=== PATIENT | male | born 1955 | race Caucasian/White ===

== ENCOUNTER 2017-09-26 10:18 | Inpatient (IN) | payer BC, OTHER ==
[~2017-09-26] VITALS: Ht 180.3 cm; Wt 101.6 kg
[~2017-09-26 10:18] MED LIST: LOSARTIN; POTASSIUM; amlodipine
[2017-09-26 11:24] LABS: BASOPHILS # (AUTO) 0.02 x10^3/uL (0-0.1); BASOPHILS % (AUTO) 0 % (0-1); EOSINOPHILS # (AUTO) 0.18 x10^3/uL (0-0.4); EOSINOPHILS % (AUTO) 3 % (1-7); LYMPHOCYTES # (AUTO) 1.01 x10^3/uL (1-3.4); LYMPHOCYTES % (AUTO) 15 % (22-44); MD NO; MEAN CORPUSCULAR HEMOGLOBIN 31.6 pg (27.5-34.5); MEAN CORPUSCULAR HGB CONC 34.4 g/dL (33.2-36.2); MEAN CORPUSCULAR VOLUME 92.1 fL (81-97); MEAN PLATELET VOLUME 7.4 fL (7.4-10.4); MONOCYTES # (AUTO) 0.29 x10^3/uL (0.2-0.8); MONOCYTES % (AUTO) 4 % (2-9); NEUTROPHILS # (AUTO) 5.32 x10^3/uL (1.8-6.8); NEUTROPHILS % (AUTO) 78 % (42-75); PLATELET COUNT 172 x10^3/uL (130-400); RED BLOOD COUNT 3.22 x10^6/uL (4.38-5.82)
[2017-09-26 11:36] LABS: ALBUMIN 3.6 g/dL (3.4-5.0); ANION GAP 15 mmol/L (5-15); CALCIUM 8.1 mg/dL (8.5-10.1); CHLORIDE 106 mmol/L (98-107); CREATININE 7.54 mg/dL (0.7-1.3)
[2017-09-26] MEDS ORDERED: AMLO5TAB2 PO (15:31)
[2017-09-26] MEDS ORDERED: CHOL2000 PO (15:53)
[2017-09-26] MEDS ORDERED: ALLO300T PO (15:53)
[2017-09-26] MEDS ORDERED: CALC0.25 PO (15:53)
[2017-09-26] MEDS ORDERED: [UNRECOGNIZED DRUG - OTHER] PO (15:54)
[2017-09-26] MEDS ORDERED: CALCITRIOL 0.25 MCG CAPSULE PO SCH (16:00)
[2017-09-26] MEDS ORDERED: LABETALOL 5MG/ML, 20ML IVPush PRN (16:30)
[2017-09-26] MEDS ORDERED: AMLODIPINE 5 MG TABLET PO ONE (16:30)
[2017-09-26] MEDS ORDERED: SODIUM BICARBONATE 650 MG TABLET PO SCH (16:30)
[2017-09-26] MEDS ORDERED: LIDOCAINE-MPF 1%, 2ML ONE (16:32)
[2017-09-26 18:00] VITALS: BP 190/96
[2017-09-26] MEDS: HYDROcodone/APAP 5/325 TABLET PO PRN ×2 (18:52→23:38)
[2017-09-26 19:01] VITALS: BP 177/98
[2017-09-26] MEDS ORDERED: AMLODIPINE 5 MG TABLET PO SCH (21:00)
[2017-09-27 02:00] VITALS: BP 171/93
[2017-09-27 06:14] LABS: CHLORIDE 109 mmol/L (98-107)
[2017-09-27 06:16] LABS: BASOPHILS # (AUTO) 0.01 x10^3/uL (0-0.1); BASOPHILS % (AUTO) 0 % (0-1); EOSINOPHILS # (AUTO) 0.24 x10^3/uL (0-0.4); EOSINOPHILS % (AUTO) 4 % (1-7); LYMPHOCYTES # (AUTO) 1.26 x10^3/uL (1-3.4); LYMPHOCYTES % (AUTO) 21 % (22-44); MD NO; MEAN CORPUSCULAR HEMOGLOBIN 31.9 pg (27.5-34.5); MEAN CORPUSCULAR HGB CONC 35.1 g/dL (33.2-36.2); MEAN CORPUSCULAR VOLUME 90.9 fL (81-97); MEAN PLATELET VOLUME 7.1 fL (7.4-10.4); MONOCYTES # (AUTO) 0.46 x10^3/uL (0.2-0.8); MONOCYTES % (AUTO) 8 % (2-9); NEUTROPHILS # (AUTO) 4.16 x10^3/uL (1.8-6.8); NEUTROPHILS % (AUTO) 68 % (42-75); PLATELET COUNT 145 x10^3/uL (130-400); RED BLOOD COUNT 2.81 x10^6/uL (4.38-5.82); RED CELL DISTRIBUTION WIDTH 13.8 % (9.4-14.8)
[2017-09-27 07:27] LABS: % IRON SATURATION 22 % (20-55); ALANINE AMINOTRANSFERASE 18 U/L (12-78); ALKALINE PHOSPHATASE 75 U/L (45-117); BILIRUBIN,TOTAL 0.9 mg/dL (0.2-1.0); CREATININE 7.68 mg/dL (0.7-1.3); IRON LEVEL 57 mcg/dL (65-175); TOTAL IRON BINDING CAPACITY 262 mcg/dL (250-450); TOTAL PROTEIN 5.9 g/dL (6.4-8.2)
[2017-09-27 07:47] LABS: ANION GAP 11 mmol/L (5-15)
[2017-09-27 08:52] VITALS: BP 171/85
[2017-09-27] MEDS ORDERED: CHOLECALCIFEROL 4000 UNIT PO SCH (09:00)
[2017-09-27] MEDS ORDERED: ALLOPURINOL 300 MG TABLET PO SCH (09:00)
[2017-09-27] MEDS ORDERED: [UNRECOGNIZED DRUG - OTHER] PO SCH (09:00)
[2017-09-27] MEDS ORDERED: CALCITRIOL 0.25 MCG CAPSULE PO SCH (09:00)
[2017-09-27 11:28] VITALS: BP 179/99
[2017-09-27] MEDS: IRON SUCROSE COMPLEX 100MG/5ML IV SCH (11:30)
[2017-09-27] MEDS: CHOLECALCIFEROL 4000 UNIT PO SCH (11:30)
[2017-09-27 13:11] VITALS: BP 166/84
[2017-09-27 18:36] VITALS: BP_SYST 169; BP_SYST 174; BP_DIAS 86; BP_DIAS 93
[2017-09-27] MEDS ORDERED: DOCUSATE 100 MG CAPSULE PO PRN (21:00)
[2017-09-27] MEDS: AMLODIPINE 5 MG TABLET PO SCH (21:09)
[2017-09-27] MEDS: LOSARTAN 50MG TABLET PO SCH (21:10)
[2017-09-27] MEDS: HYDROcodone/APAP 5/325 TABLET PO PRN (21:10)
[2017-09-28 01:33] VITALS: BP 157/86
[2017-09-28 04:23] LABS: BASOPHILS # (AUTO) 0.02 x10^3/uL (0-0.1); BASOPHILS % (AUTO) 0 % (0-1); EOSINOPHILS % (AUTO) 4 % (1-7); LYMPHOCYTES # (AUTO) 1.01 x10^3/uL (1-3.4); LYMPHOCYTES % (AUTO) 19 % (22-44); MD NO; MEAN CORPUSCULAR HEMOGLOBIN 31.3 pg (27.5-34.5); MEAN CORPUSCULAR HGB CONC 34.1 g/dL (33.2-36.2); MEAN CORPUSCULAR VOLUME 91.9 fL (81-97); MEAN PLATELET VOLUME 6.9 fL (7.4-10.4); MONOCYTES % (AUTO) 8 % (2-9); NEUTROPHILS # (AUTO) 3.62 x10^3/uL (1.8-6.8); NEUTROPHILS % (AUTO) 69 % (42-75); PLATELET COUNT 145 x10^3/uL (130-400); RED CELL DISTRIBUTION WIDTH 13.8 % (9.4-14.8)
[2017-09-28 04:35] LABS: ALBUMIN 2.9 g/dL (3.4-5.0); ANION GAP 10 mmol/L (5-15); CHLORIDE 104 mmol/L (98-107)
[2017-09-28 04:39] LABS: ALANINE AMINOTRANSFERASE 20 U/L (12-78); ALKALINE PHOSPHATASE 69 U/L (45-117); BILIRUBIN,TOTAL 0.5 mg/dL (0.2-1.0); CREATININE 6.91 mg/dL (0.7-1.3); TOTAL PROTEIN 5.6 g/dL (6.4-8.2)
[2017-09-28] MEDS ORDERED: DOCUSATE 100 MG CAPSULE PO PRN (05:00)
[2017-09-28 08:05] VITALS: BP 152/81
[2017-09-28 13:07] VITALS: BP 167/88
[2017-09-28 19:18] VITALS: BP 178/96
[2017-09-28] MEDS: LOSARTAN 50MG TABLET PO SCH (21:28)
[2017-09-28] MEDS: AMLODIPINE 5 MG TABLET PO SCH (21:28)
[2017-09-28] MEDS: HYDROcodone/APAP 5/325 TABLET PO PRN (21:28)
[2017-09-28 21:30] VITALS: BP 171/88
[2017-09-29 00:13] VITALS: BP 143/84
[2017-09-29 06:36] VITALS: BP 143/78
[2017-09-29] MEDS: CHOLECALCIFEROL 4000 UNIT PO SCH (12:40)
[2017-09-29] MEDS: HYDROcodone/APAP 5/325 TABLET PO PRN ×2 (12:40→21:47)
[2017-09-29] MEDS: IRON SUCROSE COMPLEX 100MG/5ML IV SCH (12:45)
[2017-09-29 14:13] VITALS: BP 156/82
[2017-09-29 20:12] VITALS: BP 157/95
[2017-09-29] MEDS: VITAMIN E 400 UNITS CAPSULE PO SCH (21:46)
[2017-09-29] MEDS: AMLODIPINE 5 MG TABLET PO SCH (21:46)
[2017-09-29] MEDS: LOSARTAN 50MG TABLET PO SCH (21:47)
[2017-09-30 02:00] VITALS: BP 144/80
[2017-09-30 06:44] VITALS: BP 145/78
[2017-09-30] MEDS ORDERED: SEVELAMER HCL 800MG TABLET PO SCH (09:00)
[2017-09-30] MEDS: CHOLECALCIFEROL 4000 UNIT PO SCH ×2 (09:00→17:17)
[2017-09-30] MEDS: SEVELAMER CARBONATE 800MG TAB PO SCH ×3 (09:00→17:18)
[2017-09-30 12:26] VITALS: BP 153/84
[2017-09-30] MEDS: HYDROcodone/APAP 5/325 TABLET PO PRN (17:20)
[2017-09-30 20:00] VITALS: BP 156/80
[2017-09-30] MEDS: AMLODIPINE 5 MG TABLET PO SCH (21:17)
[2017-09-30] MEDS: VITAMIN E 400 UNITS CAPSULE PO SCH (21:17)
[2017-09-30] MEDS: LOSARTAN 50MG TABLET PO SCH (21:18)
[2017-10-01 01:40] VITALS: BP 165/88
[2017-10-01 05:09] LABS: BASOPHILS # (AUTO) 0.02 x10^3/uL (0-0.1); BASOPHILS % (AUTO) 0 % (0-1); EOSINOPHILS # (AUTO) 0.18 x10^3/uL (0-0.4); EOSINOPHILS % (AUTO) 2 % (1-7); LYMPHOCYTES # (AUTO) 1.08 x10^3/uL (1-3.4); LYMPHOCYTES % (AUTO) 12 % (22-44); MD NO; MEAN CORPUSCULAR HEMOGLOBIN 30.6 pg (27.5-34.5); MEAN CORPUSCULAR HGB CONC 33.4 g/dL (33.2-36.2); MEAN CORPUSCULAR VOLUME 91.6 fL (81-97); MEAN PLATELET VOLUME 7.4 fL (7.4-10.4); MONOCYTES # (AUTO) 0.65 x10^3/uL (0.2-0.8); MONOCYTES % (AUTO) 7 % (2-9); NEUTROPHILS # (AUTO) 7.09 x10^3/uL (1.8-6.8); NEUTROPHILS % (AUTO) 79 % (42-75); PLATELET COUNT 159 x10^3/uL (130-400); RED BLOOD COUNT 2.96 x10^6/uL (4.38-5.82); RED CELL DISTRIBUTION WIDTH 13.9 % (9.4-14.8)
[2017-10-01 05:15] LABS: ALANINE AMINOTRANSFERASE 17 U/L (12-78); ALBUMIN 2.9 g/dL (3.4-5.0); ANION GAP 12 mmol/L (5-15); CALCIUM 8.5 mg/dL (8.5-10.1); CHLORIDE 99 mmol/L (98-107); CREATININE 6.99 mg/dL (0.7-1.3)
[2017-10-01 05:17] LABS: ALKALINE PHOSPHATASE 75 U/L (45-117); BILIRUBIN,TOTAL 0.6 mg/dL (0.2-1.0); TOTAL PROTEIN 5.9 g/dL (6.4-8.2)
[2017-10-01] MEDS ORDERED: EPINEPHRINE 1 MG/ML, 1ML ONE (06:28)
[2017-10-01] MEDS ORDERED: BUPIVACAINE/PF 0.25% ONE (06:28)
[2017-10-01] MEDS ORDERED: THROMBIN 5,000 UNIT VIAL TP ONE (06:30)
[2017-10-01] MEDS ORDERED: PROTAMINE SULFATE 10 MG/ML, 5ML ONE (06:30)
[2017-10-01] MEDS ORDERED: HEPARIN 5,000 UNITS/ML, 1ML ONE ×2 (06:30→07:23)
[2017-10-01] MEDS ORDERED: FENTANYL PF 250 MCG/5ML ONE (07:18)
[2017-10-01] MEDS ORDERED: DEXAMETHASONE 4 MG/ML, 1ML ONE (07:47)
[2017-10-01] MEDS ORDERED: PROPOFOL 10 MG/ML, 20ML ONE (07:47)
[2017-10-01] MEDS ORDERED: CEFAZOLIN 1,000 MG ONE (07:47)
[2017-10-01] MEDS ORDERED: SUCCINYLCHOLINE 20 MG/ML, 10ML ONE (07:47)
[2017-10-01] MEDS ORDERED: ONDANSETRON 2MG/ML, 2ML ONE (07:47)
[2017-10-01] MEDS: SEVELAMER CARBONATE 800MG TAB PO SCH ×3 (08:00→17:03)
[2017-10-01] MEDS: CHOLECALCIFEROL 4000 UNIT PO SCH (08:25)
[2017-10-01] MEDS: CARVEDILOL 6.25 MG TABLET PO SCH ×2 (09:00→17:03)
[2017-10-01] MEDS ORDERED: PROMETHAZINE 25 MG/ML, 1ML IV PRN (09:00)
[2017-10-01] MEDS ORDERED: FENTANYL PF 100 MCG/2ML IV PRN (09:00)
[2017-10-01] MEDS ORDERED: OXYcodone 5 MG/5 ML ORAL.SOL UDC PO PRN (09:00)
[2017-10-01] MEDS ORDERED: hydrALAzine 20 MG/ML, 1ML IV PRN (09:00)
[2017-10-01] MEDS ORDERED: ALBUTEROL SULFATE 2.5 MG/3 ML NPPB PRN (09:00)
[2017-10-01] MEDS ORDERED: LABETALOL 5MG/ML, 20ML IV PRN (09:00)
[2017-10-01] MEDS ORDERED: ACETAMINOPHEN 325 MG TABLET PO PRN (09:00)
[2017-10-01] MEDS ORDERED: HYDROmorphone 1 MG/ML, 1ML IV PRN (09:00)
[2017-10-01] MEDS ORDERED: HEPARIN 1,000 UNITS/ML, 10ML ONE (09:17)
[2017-10-01] MEDS: IRON SUCROSE COMPLEX 100MG/5ML IV SCH (12:15)
[2017-10-01 14:13] VITALS: BP 159/78
[2017-10-01] MEDS: HYDROcodone/APAP 5/325 TABLET PO PRN ×2 (14:13)
[2017-10-01 20:27] VITALS: BP 143/77
[2017-10-01] MEDS: VITAMIN E 400 UNITS CAPSULE PO SCH (20:29)
[2017-10-01] MEDS: LOSARTAN 50MG TABLET PO SCH (20:29)
[2017-10-01] MEDS: AMLODIPINE 5 MG TABLET PO SCH (20:30)
[2017-10-02 01:02] VITALS: BP 138/72
[2017-10-02 05:39] LABS: ALBUMIN 2.8 g/dL (3.4-5.0); ANION GAP 12 mmol/L (5-15); CHLORIDE 100 mmol/L (98-107)
[2017-10-02 05:43] LABS: ALANINE AMINOTRANSFERASE 11 U/L (12-78); ALKALINE PHOSPHATASE 66 U/L (45-117); BILIRUBIN,TOTAL 0.5 mg/dL (0.2-1.0); CREATININE 8.84 mg/dL (0.7-1.3); TOTAL PROTEIN 5.8 g/dL (6.4-8.2)
[2017-10-02] MEDS: CARVEDILOL 6.25 MG TABLET PO SCH (06:09)
[2017-10-02] MEDS: SEVELAMER CARBONATE 800MG TAB PO SCH (08:00)
[2017-10-02 08:24] VITALS: BP 136/86
[2017-10-02] MEDS ORDERED: AMLO5TAB2 PO (10:44)
[2017-10-02] MEDS ORDERED: HYDR-3240 PO (10:44)
[2017-10-02] MEDS ORDERED: SEVE800T8 PO (10:44)
[2017-10-02] MEDS ORDERED: LOSA50TA2 PO (10:44)
[2017-10-02] MEDS ORDERED: CARV6.2512 PO (10:44)
[2017-10-02] MEDS ORDERED: SEVELAMER CARBONATE 800MG TAB PO SCH (12:00)
== END 2017-10-02 14:25 | disposition home or self-care (01) | DRG 674 ==
LOC: ED 14:12 → EDIP 14:13 → ED 14:31 → 4EST 17:30
PROVIDERS: ADMIT Hospitalist; ATTEND Hospitalist
PROC: 5A1D70Z Performance of Urinary Filtration, Intermittent, Less than 6 Hours Per Day (ICD-10-PCS; 2017-09-27)
PROC: 5A1D70Z Performance of Urinary Filtration, Intermittent, Less than 6 Hours Per Day (ICD-10-PCS; 2017-09-28)
PROC: 5A1D70Z Performance of Urinary Filtration, Intermittent, Less than 6 Hours Per Day (ICD-10-PCS; 2017-09-29)
PROC: 0JH63XZ Insertion of Tunneled Vascular Access Device into Chest Subcutaneous Tissue and Fascia, Percutaneous Approach (ICD-10-PCS; 2017-10-01)
PROC: 02H633Z Insertion of Infusion Device into Right Atrium, Percutaneous Approach (ICD-10-PCS; 2017-10-01)
PROC: B2141ZZ Fluoroscopy of Right Heart using Low Osmolar Contrast (ICD-10-PCS; 2017-10-01)
PROC: B244ZZZ Ultrasonography of Right Heart (ICD-10-PCS; 2017-10-01)
PROC: 03180ZD Bypass Left Brachial Artery to Upper Arm Vein, Open Approach (ICD-10-PCS; principal; 2017-10-01 07:30)
PROC: 5A1D70Z Performance of Urinary Filtration, Intermittent, Less than 6 Hours Per Day (ICD-10-PCS; 2017-10-02)
DX: N17.9 Acute kidney failure, unspecified (principal); E87.2 Acidosis; I12.0 Hypertensive chronic kidney disease with stage 5 chronic kidney disease or end stage renal disease; D50.9 Iron deficiency anemia, unspecified; D63.1 Anemia in chronic kidney disease; N18.6 End stage renal disease; M10.9 Gout, unspecified; Z86.73 Personal history of transient ischemic attack (TIA), and cerebral infarction without residual deficits; Z99.2 Dependence on renal dialysis; Z88.6 Allergy status to analgesic agent; Z88.0 Allergy status to penicillin
CPT/HCPCS: 36415; 36556; 76937; 77001; 80048; 80053; 80074; 82040; 82306; 82728; 83540; 83550; 83735; 83970; 84100; 84550; 85025; 86480; 86706; 93005; 99285; J0171; J0690; J1100; J1644; J1756; J2405; J2704; J2720; J3010; J3490; C1751; G0365; J0330; J1642

== ENCOUNTER → 2017-12-17 | Outpatient (CLI) | payer BC, OTHER ==
[~2017-12-17] MED LIST changes: +ALLO300T PO; +AMLO10TA2 PO; +AMLO5TAB2 PO; +CALC0.25 PO; +CARV6.2512 PO; +CHOL10003 PO; +CHOL2000 PO; +HYDR-3240 PO; +LOSA100T6 PO; +LOSA50TA2 PO; +SEVE800T8 PO; +SODI650T PO; +[UNRECOGNIZED DRUG - OTHER] PO
[2017-12-17 10:34] LABS: BASOPHILS # (AUTO) 0.04 x10^3/uL (0-0.1); BASOPHILS % (AUTO) 1 % (0-1); EOSINOPHILS # (AUTO) 0.18 x10^3/uL (0-0.4); EOSINOPHILS % (AUTO) 4 % (1-7); LYMPHOCYTES # (AUTO) 1.45 x10^3/uL (1-3.4); LYMPHOCYTES % (AUTO) 31 % (22-44); MD NO; MEAN CORPUSCULAR HEMOGLOBIN 33.3 pg (27.5-34.5); MEAN CORPUSCULAR HGB CONC 35.5 g/dL (33.2-36.2); MEAN CORPUSCULAR VOLUME 93.8 fL (81-97); MEAN PLATELET VOLUME 7.8 fL (7.4-10.4); MONOCYTES # (AUTO) 0.42 x10^3/uL (0.2-0.8); MONOCYTES % (AUTO) 9 % (2-9); NEUTROPHILS # (AUTO) 2.61 x10^3/uL (1.8-6.8); NEUTROPHILS % (AUTO) 56 % (42-75); PLATELET COUNT 156 x10^3/uL (130-400); RED BLOOD COUNT 3.85 x10^6/uL (4.38-5.82); RED CELL DISTRIBUTION WIDTH 15.3 % (9.4-14.8)
[2017-12-17 10:43] LABS: ALBUMIN 4.2 g/dL (3.4-5.0); ANION GAP 7 mmol/L (5-15); CALCIUM 8.6 mg/dL (8.5-10.1); CHLORIDE 102 mmol/L (98-107)
[2017-12-17 10:48] LABS: ALANINE AMINOTRANSFERASE 23 U/L (12-78); ALKALINE PHOSPHATASE 69 U/L (45-117); BILIRUBIN,TOTAL 0.5 mg/dL (0.2-1.0); CREATININE 9.62 mg/dL (0.7-1.3); TOTAL PROTEIN 7.5 g/dL (6.4-8.2)
[2017-12-17 12:01] LABS: INTERNATIONAL NORMALIZED RATIO 1.04 (0.93-1.1); PROTHROMBIN TIME 10.7 Seconds (9.6-11.5)
== END | disposition home or self-care (01) ==
LOC: STAR 09:25
PROVIDERS: ATTEND Surgery
DX: Z01.818 Encounter for other preprocedural examination (principal); L98.8 Other specified disorders of the skin and subcutaneous tissue; Z88.0 Allergy status to penicillin
CPT/HCPCS: 36415; 80053; 85025; 85610; 85730

== ENCOUNTER 2017-12-24 10:14 | Day surgery (SDC) | payer BC, OTHER ==
[~2017-12-24] VITALS: Ht 180.3 cm; Wt 96.5 kg
[~2017-12-24 10:14] MED LIST changes: -AMLO10TA2 PO; +AMLO10TA6 PO; -AMLO5TAB2 PO; +AMLO5TAB7 PO; +BUPIVACAINE/PF-EPI 0.5% 1:200K ONE; +HEPARIN 1,000 UNITS/ML, 10ML ONE; -LOSA100T6 PO; +LOSA100T7 PO; +THROMBIN 5,000 UNIT VIAL TP ONE
[2017-12-24] MEDS ORDERED: SODIUM CHLORIDE 0.9% 1,000 ML IV SCH (10:39)
[2017-12-24 10:59] VITALS: BP 153/81
[2017-12-24] MEDS ORDERED: FENTANYL PF 100 MCG/2ML ONE (11:59)
[2017-12-24] MEDS ORDERED: HEPARIN 1,000 UNITS/ML, 10ML ONE (12:01)
[2017-12-24] MEDS ORDERED: BUPIVACAINE/PF 0.5% ONE (12:01)
[2017-12-24] MEDS ORDERED: THROMBIN 5,000 UNIT VIAL TP ONE (12:01)
[2017-12-24] MEDS ORDERED: PROTAMINE SULFATE 10 MG/ML, 5ML ONE (12:01)
[2017-12-24] MEDS ORDERED: ONDANSETRON 2MG/ML, 2ML ONE (12:30)
[2017-12-24] MEDS ORDERED: GLYCOPYRROLATE 0.2MG/1ML, 5ML ONE (12:30)
[2017-12-24] MEDS ORDERED: EPHEDRINE 50 MG/ML, 1ML ONE (12:30)
[2017-12-24] MEDS ORDERED: PROPOFOL 10 MG/ML, 20ML ONE (12:30)
[2017-12-24] MEDS ORDERED: DEXAMETHASONE 4 MG/ML, 1ML ONE (12:30)
[2017-12-24] MEDS ORDERED: CEFAZOLIN 1,000 MG ONE (12:30)
[2017-12-24] MEDS ORDERED: PROMETHAZINE 25 MG/ML, 1ML IV PRN (14:00)
[2017-12-24] MEDS ORDERED: FENTANYL PF 100 MCG/2ML IV PRN (14:00)
[2017-12-24] MEDS ORDERED: ALBUTEROL SULFATE 2.5 MG/3 ML NPPB PRN (14:00)
[2017-12-24] MEDS ORDERED: OXYcodone 5 MG/5 ML ORAL.SOL UDC PO PRN (14:00)
[2017-12-24] MEDS ORDERED: LABETALOL 5MG/ML, 20ML IV PRN (14:00)
[2017-12-24] MEDS ORDERED: ACETAMINOPHEN 325 MG TABLET PO PRN (14:00)
== END 2017-12-24 15:40 | disposition home or self-care (01) ==
LOC: OUT 10:14
PROVIDERS: ATTEND Surgery
DX: T82.590A Other mechanical complication of surgically created arteriovenous fistula, initial encounter (principal); Y83.8 Other surgical procedures as the cause of abnormal reaction of the patient, or of later complication, without mention of misadventure at the time of the procedure; Y92.89 Other specified places as the place of occurrence of the external cause; I12.0 Hypertensive chronic kidney disease with stage 5 chronic kidney disease or end stage renal disease; N18.6 End stage renal disease; J45.909 Unspecified asthma, uncomplicated; Z99.2 Dependence on renal dialysis; Z98.890 Other specified postprocedural states; Z88.1 Allergy status to other antibiotic agents; Z88.0 Allergy status to penicillin; Z88.8 Allergy status to other drugs, medicaments and biological substances; Z79.899 Other long term (current) drug therapy; Z86.73 Personal history of transient ischemic attack (TIA), and cerebral infarction without residual deficits
CPT/HCPCS: 36415; 36832; J0690; J1100; J1644; J2405; J2704; J3010; J3490; J7030; J2720

== ENCOUNTER 2019-09-02 10:48 | Observation (INO) | payer BC, MEDICARE ==
[~2019-09-02] VITALS: Ht 180.3 cm; Wt 87.6 kg
[~2019-09-02 10:48] MED LIST changes: +AMLO-150 PO; -AMLO10TA6 PO; +AMLO10TA8 PO; -AMLO5TAB7 PO; -BUPIVACAINE/PF-EPI 0.5% 1:200K ONE; -HEPARIN 1,000 UNITS/ML, 10ML ONE; +LOSA100T14 PO; -LOSA100T7 PO; -THROMBIN 5,000 UNIT VIAL TP ONE
--- NOTE | 2019-09-02 11:04 | NUR ---
PT BROUGHT IN BY [facility]. PT HAS A L SIDED AV FISTULA FOR HD. PT WAS IN THE SHOWER WHEN HE SUDDENLY HAD UNCONTROLLED BLEEDING FROM THE SITE. TOURNIQUET APPLIED AT 0955 BY EMS. AT BEDSIDE AND TOOK DOWN TOURNIQUET AT 1055. BLEEDING CONTROLLED AND DRESSING APPLIED. PT PLACED ON FARMER AND GRAZIER. WILL CONTINUE TO MONITOR PT AND FISTULA.
--- NOTE | 2019-09-02 11:12 | NUR ---
STERILE GAUZE PLACED OVER FISTULA IN LEFT UPPER ARM. SCABBED AREA THAT OPENED MEASURES 1X1X0.5CM. STERILE GAUZE HELD IN PLACE BY EVER. TOURNIQUET REMOVED BY DR. KUO, BUT REMAINS IN PLACE IN CASE PT STARTS TO BLEED AGAIN. PULSE IN LEFT RADIAL AND BRACIAL PALPABLE. FISUTLA HAS +BRUITT AND THRILL. APPROXIMATE BLOOD LOSS 500-1000ML.
[2019-09-02 12:01] LABS: BASOPHILS # (AUTO) 0.04 x10^3/uL (0-0.1); BASOPHILS % (AUTO) 1 % (0-1); EOSINOPHILS % (AUTO) 5 % (1-7); LYMPHOCYTES # (AUTO) 1.36 x10^3/uL (1-3.4); LYMPHOCYTES % (AUTO) 18 % (22-44); MD NO; MEAN CORPUSCULAR HEMOGLOBIN 34.6 pg (27.5-34.5); MEAN CORPUSCULAR HGB CONC 33.9 g/dL (33.2-36.2); MEAN PLATELET VOLUME 7.7 fL (7.4-10.4); MONOCYTES % (AUTO) 7 % (2-9); NEUTROPHILS # (AUTO) 5.18 x10^3/uL (1.8-6.8); NEUTROPHILS % (AUTO) 69 % (42-75); PLATELET COUNT 145 x10^3/uL (130-400); RED BLOOD COUNT 2.56 x10^6/uL (4.38-5.82); RED CELL DISTRIBUTION WIDTH 17.1 % (9.4-14.8)
--- NOTE | 2019-09-02 13:50 | NUR ---
RN IN TO DISCUSS DISCHARGE WITH PATIENT. RN OBTAINS DAUGHTER'S PHONE NUMBER AND CALLS HER FOR CLOTHES AND A RIDE HOME. PT INFORMED OF THIS. PT INFORMS RN THAT HE IS NOT READY TO LEAVE, AND HE COULD HAVE AT HOME TODAY, AND NOBODY EVEN LOOKED AT HIS FISTULA, AND WHAT HAPPENS IF THE SCAB COMES OFF AGAIN. RN INFORMS ALL FEARS TO MD. MD ASSURED RN THAT HE SPOKE WITH NEPHROLOGY AND SINCE IT'S BEEN 2 HOURS, THEY ARE OK WITH HIM GOING HOME AND GOING TO DIALYSIS TODAY. RN BACK IN TO DISCUSS WITH PATIENT THAT MD SPOKE WITH ALL HIS DOCTORS AND EVERYONE WAS ON BOARD WITH HIM LEAVING AND GOING TO DIALYSIS TODAY. PT NOT OK WITH THAT, ASKING TO SPEAK TO THE DOCTOR. PT WANTS THE DOCTOR TO PUT STITCHES IN THE OPEN SITE. WILL AWAIT FOR OK TO DISCHARGE
--- NOTE | 2019-09-02 14:30 | NUR ---
PT RESTING, LABS DRAWN, DAUGHTER BROUGHT CLOSE AND CELL PHONE. OFFERED PATIENT SHOWER, WANTS TO WAIT UNTIL HE GETS TO HIS ROOM.
[2019-09-02 14:37] LABS: ANION GAP 4 mmol/L (5-15); CALCIUM 8.6 mg/dL (8.5-10.1); CHLORIDE 109 mmol/L (98-107); CREATININE 9.88 mg/dL (0.7-1.3)
[2019-09-02] MEDS ORDERED: hydrALAzine 20 MG/ML, 1ML IVPush PRN (15:30)
[2019-09-02] MEDS ORDERED: ONDANSETRON 2MG/ML, 2ML IVPush PRN (15:30)
[2019-09-02] MEDS ORDERED: ACETAMINOPHEN 325 MG TABLET PO PRN (15:30)
[2019-09-02] MEDS ORDERED: LABETALOL 5MG/ML, 20ML IVPush PRN (15:30)
--- NOTE | 2019-09-02 15:53 | NUR ---
PT RESTING, REPORT TO [facility]HA[facility].
[2019-09-02] MEDS: CARVEDILOL 12.5 MG TABLET PO SCH (17:47)
[2019-09-02 18:13] VITALS: BP 122/64
[2019-09-02 18:54] VITALS: BP 128/66
[2019-09-03 01:21] VITALS: BP 115/68
[2019-09-03] MEDS: CARVEDILOL 12.5 MG TABLET PO SCH ×2 (05:51→17:01)
[2019-09-03 05:53] LABS: ALBUMIN 3.1 g/dL (3.4-5.0); ANION GAP 7 mmol/L (5-15); CALCIUM 8.5 mg/dL (8.5-10.1); CHLORIDE 108 mmol/L (98-107)
[2019-09-03 05:58] LABS: ALANINE AMINOTRANSFERASE 13 U/L (12-78); ALKALINE PHOSPHATASE 41 U/L (45-117); BILIRUBIN,TOTAL 0.6 mg/dL (0.2-1.0); TOTAL PROTEIN 5.6 g/dL (6.4-8.2)
[2019-09-03 06:26] LABS: MEAN CORPUSCULAR HEMOGLOBIN 34.6 pg (27.5-34.5); MEAN CORPUSCULAR HGB CONC 34.2 g/dL (33.2-36.2); MEAN PLATELET VOLUME 7.4 fL (7.4-10.4); PLATELET COUNT 124 x10^3/uL (130-400)
[2019-09-03 06:41] LABS: BASOPHILS # (AUTO) 0.03 x10^3/uL (0-0.1); BASOPHILS % (AUTO) 1 % (0-1); EOSINOPHILS # (AUTO) 0.37 x10^3/uL (0-0.4); EOSINOPHILS % (AUTO) 7 % (1-7); LYMPHOCYTES % (AUTO) 32 % (22-44); MD SCAN; MONOCYTES # (AUTO) 0.36 x10^3/uL (0.2-0.8); MONOCYTES % (AUTO) 7 % (2-9); NEUTROPHILS # (AUTO) 2.88 x10^3/uL (1.8-6.8); NEUTROPHILS % (AUTO) 54 % (42-75)
[2019-09-03 06:47] VITALS: BP 139/76
[2019-09-03] MEDS ORDERED: SEVELAMER CARBONATE 800MG TAB ONE (08:30)
[2019-09-03] MEDS: SEVELAMER CARBONATE 800MG TAB PO SCH ×3 (08:32→17:01)
[2019-09-03] MEDS ORDERED: CHOLECALCIFEROL 1,000 UNIT TABLET PO SCH (09:00)
[2019-09-03] MEDS ORDERED: LOSARTAN 100 MG TAB PO SCH (09:00)
[2019-09-03] MEDS ORDERED: SODIUM BICARBONATE 650 MG TABLET PO SCH (09:00)
[2019-09-03] MEDS ORDERED: AMLODIPINE 10 MG TAB PO SCH (09:00)
[2019-09-03] MEDS ORDERED: DARBEPOETIN 100 MCG/ML SQ SCH (12:00)
[2019-09-03 14:24] LABS: ABSOLUTE RETICS # 0.047 x10^6/uL (0.5-1.5); RED BLOOD COUNT 2.28 x10^6/uL (4.38-5.82); RETICULOCYTE COUNT % 2.04 % (0.5-1.5)
[2019-09-03 16:59] VITALS: BP 115/65
== END 2019-09-03 17:30 | disposition home or self-care (01) ==
LOC: ED 11:16 → INTOOBSV 14:35 → EDIP 14:35 → 3N 16:57
PROVIDERS: ADMIT Internal Medicine; ATTEND Hospitalist
DX: T82.838A Hemorrhage due to vascular prosthetic devices, implants and grafts, initial encounter (principal); I12.0 Hypertensive chronic kidney disease with stage 5 chronic kidney disease or end stage renal disease; N18.6 End stage renal disease; D64.9 Anemia, unspecified; N25.0 Renal osteodystrophy; D75.89 Other specified diseases of blood and blood-forming organs; Z99.2 Dependence on renal dialysis; Z88.0 Allergy status to penicillin; Z88.6 Allergy status to analgesic agent
CPT/HCPCS: 36415; 80048; 80053; 82607; 82728; 83540; 83550; 84443; 85025; 85045; 99284; G0378; 90935